=== PATIENT | male | born 1935 | race Two or more races ===

== ENCOUNTER 2018-08-02 08:00 | Outpatient (CLI) | payer MEDICARE ==
[~2018-08-02 08:00] MED LIST: CELE50CA PO; CHOLESTEROL MED; RIVA15TA PO; RIVA20TA PO; STOMACH MED
[2018-08-02] MEDS ORDERED: OMNIPAQUE 350 MG/ML, 100ML BOTTLE ONE (19:19)
== END 2018-08-02 23:59 | disposition home or self-care (01) ==
LOC: RAD 08:00
PROVIDERS: ATTEND Family Medicine
DX: K76.0 Fatty (change of) liver, not elsewhere classified (principal); R10.31 Right lower quadrant pain; E11.9 Type 2 diabetes mellitus without complications; R19.7 Diarrhea, unspecified
CPT/HCPCS: 74177; Q9967